=== PATIENT | male | born 1965 | race Caucasian/White ===

== ENCOUNTER → 2023-11-07 | Outpatient (CLI) | payer OTHER ==
[2023-11-07 15:24] LABS: Partial Thromboplastin Time 21.4 sec (22.0-30.0)
[2023-11-07 18:28] LABS: HCT 38.7 % (39.6-50.0); HGB 12.4 g/dL (13.0-17.0); MCH 29.5 pg (27.0-32.0); MCV 91.9 FL (80.0-97.0); Mean Platelet Volume 10.9 FL (9.5-12.2); NRBC Per 100 WBC 0.02 X 10*3/uL (0.00-0.01); Platelet Count 226 X 10*3/uL (140-440); RBC 4.21 X 10*6/uL (4.40-5.60); RDW 13.7 % (11.5-14.5); WBC 16.56 X 10*3/uL (4.50-10.00)
[2023-11-07 20:21] LABS: BUN/Creat Ratio 16.36 Ratio (12.00-20.00); Glucose 113 mg/dL (70-110)
[2023-11-07 20:22] LABS: ALT 20 U/L (10-49); AST 22 U/L (14-35); Albumin 4.4 g/dL (3.8-4.9); Albumin/Globulin Ratio 1.69 Ratio (1.60-3.17); Alkaline Phosphatase 82 U/L (41-126); Calcium 9.5 mg/dL (8.7-10.3); Carbon Dioxide 21.5 mmol/L (21.6-31.8); Chloride 102 mmol/L (96-109); Globulin 2.6 g/dL (1.6-3.3); Potassium 4.1 mmol/L (3.5-5.5); Sodium 139 mmol/L (135-145); Total Bilirubin 0.6 mg/dL (0.3-1.2)
== END | disposition home or self-care (01) ==
LOC: LABPAT 13:46
PROVIDERS: ATTEND Orthopaedic Surgery
DX: Z01.818 Encounter for other preprocedural examination (principal); E11.9 Type 2 diabetes mellitus without complications; Z22.322 Carrier or suspected carrier of Methicillin resistant Staphylococcus aureus; M16.12 Unilateral primary osteoarthritis, left hip
CPT/HCPCS: 36415; 80053; 83036; 85027; 85610; 85730; 86850; 86900; 86901; 87070

== ENCOUNTER 2023-11-14 10:49 | Day surgery (SDC) | payer OTHER ==
[~2023-11-14 10:49] MED LIST: TRANEXAMIC 1,000 MG/100ML-NACL 1,000 MG in SALINE 1 100ML.BAG IV PRN; TRANEXAMIC 1,000 MG/100ML-NACL 1,000 MG in SALINE 1 100ML.BAG IVPB PRN
[2023-11-14] MEDS: LACTATED RINGERS 1,000 ML IV ONE ×2 (11:15→15:51)
[2023-11-14] MEDS: ACETAMINOPHEN TAB 500 MG TAB PO PRN (11:48)
[2023-11-14] MEDS: oxyCODONE ER 10 MG TAB.ER.12H PO PRN (11:48)
[2023-11-14] MEDS: DOCUSATE 100 MG CAP PO PRN (11:48)
[2023-11-14] MEDS: DEXAMETHASONE SOD PHOSPHATE 10 MG/ML 1 ML VIAL IV PRN (11:55)
[2023-11-14] MEDS: FAMOTIDINE 20 MG/2 ML VIAL IVP PRN (11:56)
[2023-11-14] MEDS: KETOROLAC 15 MG/ML 1 ML VIAL IVP PRN (11:56)
[2023-11-14] MEDS: ONDANSETRON 4 MG/2 ML VIAL IVP PRN (11:56)
[2023-11-14] MEDS: MIDAZOLAM 2 MG/2 ML VIAL IVP ONE (12:48)
[2023-11-14] MEDS ORDERED: DEXAMETHASONE SOD PHOSPHATE 4 MG/ML 1 ML VIAL ONE (13:48)
[2023-11-14] MEDS ORDERED: NEOSTIGMINE 1 MG/ML 10 ML VIAL ONE (13:48)
[2023-11-14] MEDS ORDERED: LIDOCAINE 1% INJ 10MG/ML (20 ML MDV) ONE (13:48)
[2023-11-14] MEDS ORDERED: ROCURONIUM 10 MG/ML (5 ML VIAL) IV ONE (13:48)
[2023-11-14] MEDS ORDERED: fentaNYL (PF) 50 MCG/ML 2 ML AMP ONE (13:48)
[2023-11-14] MEDS ORDERED: PROPOFOL 10 MG/ML 20 ML VIAL IV ONE (13:48)
[2023-11-14] MEDS ORDERED: MIDAZOLAM 2 MG/2 ML VIAL ONE (13:48)
[2023-11-14] MEDS ORDERED: TRANEXAMIC 1,000 MG/100ML-NACL PREMIX BAG ONE (13:48)
[2023-11-14] MEDS ORDERED: SUCCINYLCHOLINE CHLORIDE 200 MG/10 ML VIAL IV ONE (13:48)
[2023-11-14] MEDS ORDERED: GLYCOPYRROLATE 0.2 MG/ML 2 ML VIAL ONE (13:48)
[2023-11-14] MEDS ORDERED: HYDROmorphone (PF) 1 MG/ML ONE (13:48)
[2023-11-14] MEDS ORDERED: ROPIVACAINE 5 MG/ML 30 ML VIAL ONE (13:48)
[2023-11-14] MEDS: ceFAZolin 3 GM in SODIUM CHLORIDE 0.9% 100 ML IVPB PRN (13:52)
[2023-11-14] MEDS: ROPIVACAINE/EPI/CLONIDINE/KET 50 ML SYRINGE MISCELLANE PRN (14:45)
[2023-11-14] MEDS ORDERED: HYDROmorphone 0.5 MG/0.5 ML SYRINGE IVP PRN ×2 (15:28→19:24)
--- NOTE | 2023-11-14 16:16 | P.OP ---
Date of Procedure: 11/14/23 Preoperative Diagnosis: Severe left hip osteoarthritis Postoperative Diagnosis: Same Procedure(s) Performed: Left direct anterior total hip arthroplasty Implants: 1. Jimbo Trident II Acetabular Cup, Size #54 2. Jimbo Insignia Size # 5 Femoral Stem, High Offset 3. Biolox delta femoral head, 36 mm, +0 mm neck Anesthesia: RAUL, regional Surgeon: Wilder Lang [employer] Installer #1: Corwin Bains Estimated Blood Loss (ml): 300 IV fluids (ml): 1,000 Pathology: none sent Condition: stable Disposition: PACU Indications for Procedure: I had a long discussion with the patient in the office on the potential risks and complications of an elective total hip replacement through a direct anterior approach. Risks discussed include, but are certainly not limited to, risks from anesthesia, superficial infection requiring local wound care or antibiotics, deep maria fernanda-prosthetic joint infection and the treatment required to eradicate infection, intraoperative fracture, postoperative periprosthetic fracture, damage to local blood vessels or nerves particularly the lateral femoral cutaneous nerve, delayed wound healing requiring local wound care or possibly surgical debridement, hip dislocation, leg length discrepancy, soft tissue irritation around the total hip implant such as iliopsoas tendinitis or trochanteric bursitis, wear and osteolysis from the implants, squeaking or audible noises, groin pain, thigh pain, heterotopic ossification, stiffness, aseptic loosening of the implants, dissatisfaction with surgical outcome, need for revision surgery, DVT, PE, swelling of the operative extremity, acute coronary event, stroke, failure to thrive, and possibly loss of life or limb. The patient understands that while these are the most common complications after an elective hip replacement there are certainly other less common complications possible. They were given ample time to ask questions regarding the potential complications of a hip replacement. Following our discussion the patient p rovided their verbal and written consent to go forward with an elective total hip replacement. Operative Findings: Severe left hip arthritis Description of Procedure: The patient was identified in the preoperative holding area and the correct hip was marked with my initials. I reviewed the procedure and consent with the patient. All of their questions were answered. The patient was then brought back into the operating room by anesthesia. While on the [facility] anesthesia was administered by the anesthesia team. Preoperative antibiotics and tranexamic acid were also given. After the patient was under anesthesia I examined their ankles to determine their preoperative leg length discrepancy. The skin over the anterior aspect of the hip was shaved to remove hair over the site of planned incision. Both feet and ankles were padded with webril and boots for the [place] were applied. The patient was then carefully transferred onto the [place] table. A perineal post was immediately placed. The arms were placed on arm holders and were well-padded. Both boots were secured to the spars on the [place] table. The patient was positioned so that the pelvis was centered over the post. Nonsterile drapes were applied. A timeout was performed identifying the correct patient, operative extremity, and procedure. At this point fluoroscopy was brought in to take preoperative images of the pelvis and operative hip. Using the standing AP pelvis from the office as a template, a comparable image was obtained with fluoroscopy. A metallic bar was used to create a bi-ischial line for use as a reference to leg length adjustments during the procedure. Global offset was also measured on both the operative and nonoperative leg. Fluoroscopy was then brought out and a pre-scrub using a chlorhexidine scrub brush was performed. The operative limb was then prepped and draped in the standard sterile fashion. An anterior longitudinal incision was made lateral and distal to the ASIS. The skin and subcutaneous tissues were incised sharply. The underlying tensor fascia was identified and incised in its midportion. The fascia was dissected free from the underlying muscle and the muscle belly was retracted. A blunt tipped cobra retractor was placed over the superior neck under the muscle fibers of the gluteus minimus. The deep enveloping fascia of the tensor was incised. The anterior leash of vessels were then identified and cauterized. The fascia between the rectus and the capsule was then incised and the pre-capsular fat was excised. A second Cobra was placed inferior to the neck. The interval between the rectus and iliocapsularis and the hip capsule was developed and a retractor was placed carefully over the anterior rim of the acetabulum. A T-shaped anterior capsulotomy was performed. The superior capsular leaflet was left in place in the inferior capsular flap was excised. The Cobra retractors were placed intracapsularly. We then made a femoral neck osteotomy according to preoperative and intraoperative templating and confirmed the level of the osteotomy using fluoroscopic imaging. The femoral head was removed, passed off to the back table, and sized. The superior capsular flap was excised. Retractors were placed circumferentially exposing the acetabulum. We then circumferentially debrided the acetabulum free of labrum and osteophytes. The pulvinar was removed to fully visualize the cotyloid fossa. We then sequentially reamed to achieve peripheral fit and excellent bleeding subchondral bone. The socket was thoroughly irrigated. The acetabular component was impacted into the appropriate position using fluoroscopy to guide version, inclination, and depth of insertion taking care to have a comparable image of the AP pelvis to the standing image taken in the office. An excellent press-fit was achieved and final position was confirmed using fluoroscopy. The press fit was augmented with bony cancellus dome screws. The liner was then impacted into the socket. Attention was then turned to the femur. The remnant dorsal lateral capsule was excised. The short external rotators were visible and protected. A bone hook was used to confirm appropriate translation of the trochanter away from the acetabulum. The leg was then extended and adducted and the bone hook was used to elevate the femur for broaching. A box osteotome and blunt tipped canal sound was then utilized to gain access to the femoral canal. We then sequentially broached the femur in appropriate anteversion until excellent torsional stability was achieved. The neck cut was brought flush to the trial broach with a calcar planar. A trial neck and head were then placed onto the broach and the hip was atraumatically reduced under direct visualization. External rotation to 90 was performed to assess stability. Fluoroscopy was brought in. An AP and lateral fluoroscopic image of the proximal femur was obtained to assess position and fill of the trial broach. An AP of the pelvis was then obtained and matched to the preoperative image taken. A bi-ischial bar was then placed and measurements were taken to assess changes in length and offset. The hip was then carefully dislocated, the proximal femur was exposed, and the trial implants were removed. The wound and proximal femur was thoroughly irrigated using sterile saline and pulsatile lavage. The final femoral implant was dispensed and gently tapped into place generating an excellent press-fit. The trunnion was cleansed and the final head was tapped into place to engage the Coburn taper. The acetabulum was irrigated and visualized to be free of debris. The hip was carefully reduced. Stability was checked clinically with external rotation to 90 and there was no evidence of instability. Final fluoroscopic images were taken. The wound was then thoroughly irrigated and soaked with a dilute Betadine rinse for 3 minutes. 3 L of sterile saline was irrigated through the wound using pulsatile lavage. Local anesthetic cocktail was injected into the soft tissues around the surgical field. The wound was then closed in layers. A sterile dressing was placed over the surgical incision. The drapes were taken down and the patient was carefully transferred off of the [place] table. Following removal of the boots the leg lengths felt acceptable. The patient was then taken to recovery room having tolerated the procedure well. Corwin Bains PA-C was required as a skilled hospital nursing assistant due to the complexity of surgery for patient positioning, draping, exposure, retraction, closure of wound and application of dressing. PLAN: The patient can weight-bear as tolerated on the operative extremity. DVT prophylaxis with aspirin 81 mg twice a day based on preoperative risk stratification. Physical therapy for gait training. Leave surgical dressing in place. Internal medicine for perioperative medical management.
--- NOTE | 2023-11-14 16:28 | FL ---
EXAMINATION TYPE: FL guidance operating room, XR Hip Limited LT Intraoperative/procedural fluoroscopi c services were provided. Total fluoroscopy time is 43 seconds with a total of 9 submitted images to PACS. Please see the operative/procedural note for further details. DAP: 2.1625 Gycm2
[2023-11-14 17:58] VITALS: RESP 18
[2023-11-14] MEDS: LACTATED RINGERS 1,000 ML IV SCH (18:18)
[2023-11-14] MEDS ORDERED: HYDROcodone/APAP 10-325MG 1 EACH TAB PO PRN (19:24)
[2023-11-14] MEDS ORDERED: NALOXONE 0.4 MG/ML 1 ML VIAL IV PRN (19:24)
[2023-11-14] MEDS ORDERED: HYDROmorphone 1 MG/ML 1 ML SYRINGE IVP PRN (19:24)
[2023-11-14] MEDS ORDERED: MAGNESIUM HYDROXIDE 2,400 MG/30 ML CUP PO PRN (19:24)
--- NOTE | 2023-11-14 19:51 | P.ANPRN ---
Procedure Note - Anesthesia - Nerve Block Performed Left Anselmo Single Time Out Performed: Yes Date of Procedure: 11/14/23 Procedure Start Time: 12:47 Procedure Stop Time: 12:51 Location of Patient: PreOp Indication: Acute Post-Operative Pain, Requested by Surgeon Sedation Type: Sedate with meaningful contact maintained Preparation: Sterile Prep Position: Supine Needle Types: Pajunk Needle Gauge: 21 Ultrasound used to visualize needle placement: Yes Ultrasound used to observe medication spread: Yes Blood Aspirated: No Pain Paresthesia on Injection Noted: No Resistance on Injection: Normal Image Stored and Saved: Yes Events: Uneventful and Well Tolerated (Ropivacaine 0.5% 20 cc plus dexamethasone 4 mg)
[2023-11-14] MEDS: ASPIRIN 81 MG PO SCH (21:34)
[2023-11-14] MEDS: SENNOSIDES-DOCUSATE SODIUM 1 EACH TAB PO SCH (21:35)
[2023-11-14] MEDS: HYDROcodone/APAP 5-325MG 1 EACH TAB PO PRN (22:58)
[2023-11-15] MEDS: LACTATED RINGERS 1,000 ML IV SCH (03:21)
[2023-11-15 07:52] LABS: Basophils % (A) 0 %; Eosinophils % (A) 0 %; HCT 30.6 % (39.0-53.0); HGB 9.7 gm/dL (13.0-17.5); Lymphocytes # (A) 1.8 k/uL (1.0-4.8); Lymphocytes % (A) 10 %; MCH 28.8 pg (25.0-35.0); MCHC 31.7 g/dL (31.0-37.0); MCV 90.6 fL (80.0-100.0); Monocytes # (A) 1.4 k/uL (0-1.0); Monocytes % (A) 8 %; Neutrophils # (A) 14.3 k/uL (1.3-7.7); Neutrophils % (A) 81 %; Platelet Count 193 k/uL (150-450); RBC 3.38 m/uL (4.30-5.90); RDW 14.1 % (11.5-15.5); WBC 17.8 k/uL (3.8-10.6)
[2023-11-15] MEDS: allopurinoL 100 MG TAB PO SCH (08:09)
[2023-11-15] MEDS: CITALOPRAM HYDROBROMIDE 20 MG TAB PO SCH (08:09)
[2023-11-15] MEDS: ATORVASTATIN 10 MG TAB PO SCH (08:09)
[2023-11-15 09:26] VITALS: BP 114/67; PULSE 73; TEMP 98.5
[2023-11-15 10:26] LABS: African American GFR (CKD) >90 (>60 ml/min/1.73 sqM); Anion Gap 5 mmol/L; Blood Urea Nitrogen 16 mg/dL (9-20); Calcium 8.6 mg/dL (8.4-10.2); Carbon Dioxide 24 mmol/L (22-30); Chloride 105 mmol/L (98-107); Glucose 113 mg/dL (74-99); Non-African American GFR(CKD) >90 (>60 ml/min/1.73 sqM); Potassium 4.5 mmol/L (3.5-5.1); Sodium 134 mmol/L (137-145)
--- NOTE | 2023-11-15 10:37 | XR ---
EXAMINATION TYPE: XR chest 1V portable DATE OF EXAM: 11/15/2023 10:02 AM CLINICAL INDICATION:Male, 58 years old with history of shortness of breath; PHH COMPARISON: None TECHNIQUE: XR chest 1V portable Frontal view of the chest. FINDINGS: Lungs/Pleura: There is no evidence of pleural effusion, focal consolidation, or pneumothorax. Pulmonary vascularity: Unremarkable. Heart/mediastinum: Cardiomediastinal silhouette is unremarkable. Musculoskeletal: No acute osseous pathology. IMPRESSION: No acute cardiopulmonary disease/process.
[2023-11-15 11:07] LABS: Appearance,Urine Clear (Clear); Bilirubin,Urine Negative (Negative); Blood,Urine Negative (Negative); Color,Urine Yellow; Glucose,Urine (UA) Negative (Negative); Ketones,Urine Negative (Negative); Leukocyte Esterase,Urine Negative (Negative); Nitrite,Urine Negative (Negative); PH, Urine 5.5 (5.0-8.0); Protein,Urine Negative (Negative); Specific Gravity,Urine 1.029 (1.001-1.035); Urobilinogen,Urine <2.0 mg/dL (<2.0)
--- NOTE | 2023-11-15 11:23 | P.DS ---
Providers Date of admission: 11/14/2023 Attending physician: Wilder Lang Consults: 11/14/23 19:24 Consult Physician Routine Consulting Provider: Amari Ken Consult Reason/Comments: post op medical management Do you want consulting provider notified?: Yes Primary care physician: Amari Ken [facility] Course: This is a 58 year old male who presented to pre op on 11/14/2023 with left hip osteoarthritis for scheduled left direct anterior total hip replacement. Patient underwent left direct anterior total hip replacement and tolerated the procedure well. He was transferred to the floor. On POD#1 he worked with physical therapy and was able to walk with a walker, and he has been up to the bathroom several times. His pain is controlled. On focused exam of the surgical site his dressing is intact, and free of strikethrough. Their is mild generalized left thigh swelling. Their is no erythema or discoloration of the skin. The femoral nerve function is intact and the patient is able to plantarflex and dorse fles their ankle and move their toes. Their left foot is warm and well perfused. Patient states is ready to be discharged home today and will follow up in office in two weeks. Plan - Discharge Summary Discharge Rx Participant: Yes New Discharge Prescriptions: New Aspirin 81 mg PO BID #60 tab Docusate [Colace] 100 mg PO BID #60 capsule HYDROcodone/APAP 5-325MG [[place] 5-325] 1 - 2 tab PO Q6HR PRN #32 tab PRN Reason: Pain Diclofenac Sodium [Voltaren] 75 mg PO BID #60 tab Omeprazole 40 mg PO DAILY #30 cap No Action Rosuvastatin Calcium [Crestor] 5 mg PO QAM Ibuprofen [Motrin] 600 mg PO DAILY Citalopram Hydrobromide [Citalopram HBr] 20 mg PO QAM lisinopriL 40 mg PO QAM Aspirin [Adult Low Dose Aspirin EC] 81 mg PO DAILY allopurinoL 100 mg PO QAM Discharge Medication List Aspirin [Adult Low Dose Aspirin EC] 81 mg PO DAILY 11/09/23 [History] Citalopram Hydrobromide [Citalopram HBr] 20 mg PO QAM 11/09/23 [History] Ibuprofen [Motrin] 600 mg PO DAILY 11/09/23 [History] Rosuvastatin Calcium [Crestor] 5 mg PO QAM 11/09/23 [History] allopurinoL 100 mg PO QAM 11/09/23 [History] lisinopriL 40 mg PO QAM 11/09/23 [History] Aspirin 81 mg PO BID #60 tab 11/15/23 [Rx] Diclofenac Sodium [Voltaren] 75 mg PO BID #60 tab 11/15/23 [Rx] Docusate [Colace] 100 mg PO BID #60 capsule 11/15/23 [Rx] HYDROcodone/APAP 5-325MG [[place] 5-325] 1 - 2 tab PO Q6HR PRN #32 tab 11/15/23 [Rx] Omeprazole 40 mg PO DAILY #30 cap 11/15/23 [Rx] Follow up Appointment(s)/Referral(s): Wilder Lang MD [Medical Doctor] - 2 Weeks Activity/Diet/Wound Care/Special Instructions: 1. Weight-bear as tolerated on your operative extremity unless instructed otherwise. Use a walker or other assistive device to ambulate. 2. Leave surgical dressing in place. If your dressing becomes saturated with blood, there is drainage, or the dressing becomes loose please contact the office. 3. It is okay to shower with your surgical dressing, but do not submerge in water (no hot tubs, bath's, swimming etc.) 4. Make sure to take her blood clot prevention medication as prescribed (aspirin, Eliquis, Xarelto, and Plavix are commonly prescribed medications for blood clot prevention) 5. While taking [place] or Percocet for pain make sure you're taking a stool softener (Colace) and drink lots of water. 6. Keep all follow-up appointments as scheduled. You will usually be seen in 1-2 weeks following surgery. 7. Please contact the office with any questions or concerns [phone] Discharge Disposition: HOME WITH HOME HEALTH SERVICES
--- NOTE | 2023-11-15 23:49 | CONS ---
CONSULTATION REASON FOR CONSULTATION: Advice regarding elevated WBC and other medical issues, requested by Surgery. HISTORY OF PRESENT ILLNESS: This 58-year-old gentleman with a past medical history of multiple medical problems, admitted after left hip surgery, had elevated WBC. There is no history of fever, rigors or chills at this time. The patient has history of gout also. PAST MEDICAL HISTORY: Reviewed include hypertension, hyperlipidemia, gout, rest of history and rest of the chart is also reviewed. HOME MEDICATIONS: Reviewed include lisinopril, doses and rest of medications reviewed. ALLERGIES: Pertussis vaccine. FAMILY HISTORY: No history of heart disease or strokes in the family. SOCIAL HISTORY: Smoking alcohol daily. REVIEW OF SYSTEMS: A 14-point review is negative except as mentioned earlier. PHYSICAL EXAMINATION: VITAL SIGNS: Pulse 73, blood pressure 114/69, respirations 18. HEENT: Conjunctivae normal. NECK: No JVD. CARDIOVASCULAR: S1 and S2. RESPIRATIONS: Breath sounds diminished at the bases. No rhonchi. No crackles. ABDOMEN: Soft, nontender. LEGS: No edema, no swelling. NERVOUS SYSTEM: Nonfocal. SKIN: No ulcer, rash, bleeding. LABORATORY DATA: WBC 17.8. Sodium 134. ASSESSMENT: 1. Status post left hip arthroplasty. 2. Elevated WBC, possibly reactive. 3. Hypertension. 4. Hyperlipidemia. 5. History of sleep apnea. 6. History of gout. RECOMMENDATIONS AND DISCUSSION: This is a 58-year-old gentleman, who was admitted for surgery. The patient is clinically stable. Chest x-ray showed no acute abnormality. The patient is afebrile. There is no evidence of infection currently. Elevated WBC could be reactive. I would recommend follow up with CBC closely and DVT prophylaxis and rest of the recommendations per Orthopedic surgery. Follow up with primary physician closely. MMODL / IJN: [id number] /
== END 2023-11-15 12:03 | disposition home health service (06) ==
LOC: OR 10:49 → 4SSUR 16:20 → OR 11-15 12:03
PROVIDERS: ATTEND Orthopaedic Surgery
DX: M16.12 Unilateral primary osteoarthritis, left hip (principal); E78.5 Hyperlipidemia, unspecified; I10 Essential (primary) hypertension; G47.33 Obstructive sleep apnea (adult) (pediatric); G89.18 Other acute postprocedural pain; F17.200 Nicotine dependence, unspecified, uncomplicated; Z79.899 Other long term (current) drug therapy; Z88.7 Allergy status to serum and vaccine
CPT/HCPCS: 27130; 97161; 64447; 80048; 85025; 81003; 73501; 71045; C1776; J2250; J0330; J1100 ×2; J2710; J0690 ×2; J2405; J2001; J3010; J3490; J1170; J2795; J1885; J2704; J1596

== ENCOUNTER 2024-04-02 11:46 | Day surgery (SDC) | payer OTHER ==
[~2024-04-02 11:46] MED LIST changes: +HYDROmorphone 0.5 MG/0.5 ML SYRINGE IVP PRN; +LIDOCAINE 1% (10MG/ML) FOR IV START INTRADERMA PRN; +Pre Op ABX Message 1 EACH MISC MISCELLANE ONE; -TRANEXAMIC 1,000 MG/100ML-NACL 1,000 MG in SALINE 1 100ML.BAG IV PRN; -TRANEXAMIC 1,000 MG/100ML-NACL 1,000 MG in SALINE 1 100ML.BAG IVPB PRN; +droPERidol 5 MG/2 ML VIAL IVP ONE
[2024-04-02] MEDS: LACTATED RINGERS 1,000 ML IV SCH (12:44)
[2024-04-02] MEDS: IV FLUID CONTINUATION 1,000 ML IV ONE (12:46)
[2024-04-02] MEDS: DEXAMETHASONE SOD PHOSPHATE 4 MG/ML 1 ML VIAL IV ONE (12:50)
[2024-04-02] MEDS: ONDANSETRON 4 MG/2 ML VIAL IVP ONE (12:51)
[2024-04-02] MEDS ORDERED: MIDAZOLAM 2 MG/2 ML VIAL ONE (12:55)
[2024-04-02] MEDS ORDERED: PROPOFOL 10 MG/ML 20 ML VIAL IV ONE (12:55)
[2024-04-02] MEDS ORDERED: fentaNYL (PF) 50 MCG/ML 2 ML AMP ONE (12:55)
[2024-04-02] MEDS ORDERED: LIDOCAINE 1% INJ 10MG/ML (20 ML MDV) ONE (12:55)
[2024-04-02] MEDS ORDERED: HYDROmorphone (PF) 1 MG/ML ONE (12:55)
[2024-04-02] MEDS ORDERED: KETOROLAC 15 MG/ML 1 ML VIAL ONE (12:55)
[2024-04-02 13:00] LABS: Anisocytosis Slight; HCT 34.4 % (39.0-53.0); Hypochromasia Slight; MCV 78.1 fL (80.0-100.0); Mean Platelet Volume 8.4; Microcytosis Slight; Platelet Count 211 k/uL (150-450); RDW 16.2 % (11.5-15.5); WBC 10.1 k/uL (3.8-10.6)
[2024-04-02 13:15] LABS: African American GFR (CKD) >90 (>60 ml/min/1.73 sqM); Anion Gap 9 mmol/L; Blood Urea Nitrogen 12 mg/dL (9-20); Calcium 9.1 mg/dL (8.4-10.2); Carbon Dioxide 26 mmol/L (22-30); Chloride 103 mmol/L (98-107); Glucose 102 mg/dL (74-99); Non-African American GFR(CKD) >90 (>60 ml/min/1.73 sqM); Sodium 138 mmol/L (137-145)
[2024-04-02] MEDS: BUPIVACAINE (PF) 0.25% 30 ML VIAL SQ ONE (13:39)
[2024-04-02 13:51] VITALS: TEMP 98.1
--- NOTE | 2024-04-02 13:54 | P.OP ---
Date of Procedure: 04/02/24 Preoperative Diagnosis: 1. Right knee degenerative meniscus tear 2. Right knee osteoarthritis Postoperative Diagnosis: Same Procedure(s) Performed: Right knee arthroscopy with partial medial meniscectomy Anesthesia: RAUL Surgeon: Wilder Lang Estimated Blood Loss (ml): 10 IV fluids (ml): 400 Pathology: none sent Condition: stable Disposition: PACU Indications for Procedure: the patient is a very pleasant 59-year-old male who is well-known to my practice. He previously underwent a left total hip replacement and did well. He is been having pain in his right knee. He had x-rays which showed mild arthritis and an MRI which showed both arthritis and a degenerative meniscus tear. The patient had mainly mechanical symptoms. After failing nonsurgical treatment he requested proceeding with arthroscopy as he has previously had the procedure before. He understands the limitations of an arthroscopy in the setting of arthritis particularly continued or worsened pain. We discussed the potential risks and Occasions of surgery at length including but certainly not limited to risks from anesthesia, superficial or deep infection, damage to local blood vessels or nerves, iatrogenic joint damage, progression of arthritis, fracture, damage to local tenderness or ligamentous structures, DVT, PE, other medical complications, failure to return to preoperative level of function, to satisfaction with surgery, and possibly loss of life or limb. The patient voices understanding these potential complications were also noting other less common complications. He provided both verbal and written consent to go forward with surgery. Operative Findings: Full thickness cartilage loss in the patellofemoral and medial compartment, complex degenerative tear of the medial meniscus Description of Procedure: the patient was identified in preop holding and the correct lower cavity was marked with my initials. I reviewed the consent form with the patient QUESTIONS were answered. The patient was then brought back to the operating room. He was positioned on the or table where general anesthetic and preoperative antibiotics were given. A ramp was placed under the left leg and the right leg had a tourniquet applied the proximal thigh. His leg was placed in a portillo. The foot of the table was dropped. The right leg was then prepped and draped in the standard sterile fashion. Prior to starting surgery timeout was performed identifying the correct patient, operative extremity, and procedure. The patient's leg was then elevated, exsanguinated with an Esmarch bandage, and the tourniquet was applied to 250 mmHg. I began by marking out standard anteromedial and anterolateral portals. The anterolateral portal was made with a scalpel and the arthroscope was inserted superficial patellar pouch. On inspection of the patellofemoral joint there was full-thickness cartilage loss of both the patella and the femoral trochlea. The scope was then brought down the medial gutter and a gentle valgus force was applied to the knee. The arthroscope was carefully inserted into the medial compartment. There was full-thickness cartilage loss on the femoral condyle and tibial plateau. There was a complex degenerative tear the medial meniscus. A spinal needle was then placed through the marking for the anteromedial portal to verify the trajectory. The scalpel. A blunt probe was inserted into the anteromedial portal. There was a complex tear of the medial meniscus. The probe was removed and arthroscopic shaver was placed. A partial medial meniscectomy was performed. Loose articular cartilage was also debrided of the femoral condyle. Pictures were taken after debridement of the meniscus. The scope was then placed in the notch and the ACL was probed and found to be intact. The leg was placed in the figure 4 position and the lateral compartment was evaluated. The lateral meniscus was intact in her minimal degenerative changes. The arthroscope was then brought down the lateral outer into the popliteal hiatus there were no loose bodies. Both the arthroscope and the shaver were then placed in the super patellar pouch and all fluid was removed from the knee. At this point all arthroscopic crit was removed. Both portal sites were closed with 3-0 nylon. Local anesthetic was injected at the portal sites and into the knee. A sterile dressing was applied. The tourniquet was down. The patient was awoken from his anesthetic, transferred from the OR table to a gurney and brought to recovery having tolerated the procedure well. Plan: 1 to discharge home as an outpatient. He can weight-bear as tolerated with crutches on the right leg. He will leave his dressing on for 48 hours. After 48 hours he can change his dressing. He was given a prescription for N orco for pain and a stool softener. He was also given up her prescription for aspirin. He'll need follow-up in the office in 2 weeks for a clinical check and suture removal. He does not need x-rays.
[2024-04-02 15:26] VITALS: BP 148/78; PULSE 59; RESP 20
== END 2024-04-02 16:06 | disposition home or self-care (01) ==
LOC: OR 11:46
PROVIDERS: ATTEND Orthopaedic Surgery
DX: S83.241A Other tear of medial meniscus, current injury, right knee, initial encounter (principal); M17.11 Unilateral primary osteoarthritis, right knee; I10 Essential (primary) hypertension; E78.5 Hyperlipidemia, unspecified; G47.33 Obstructive sleep apnea (adult) (pediatric); F17.210 Nicotine dependence, cigarettes, uncomplicated; F32.A Depression, unspecified; K21.9 Gastro-esophageal reflux disease without esophagitis; Z88.7 Allergy status to serum and vaccine; Z79.899 Other long term (current) drug therapy; X58.XXXA Exposure to other specified factors, initial encounter
CPT/HCPCS: 80048; 85027; 29881; J2250; J1100; J2405; J2003; J3010; J1171; J1885; J2704; J0665